=== PATIENT | male | born 1960 | race Caucasian/White ===

== ENCOUNTER → 2018-10-09 12:10 | Outpatient (CLI) | payer BC, SELFPAY ==
[2018-10-09 13:45] LABS: Absolute Lymphocyte Count 1.63 X10^3/ul (0.83-4.51); Absolute Neutrophil Count 4.4 X10^3/uL (2.0-7.7); Basophil# 0.02 X10^3/uL; Basophil% 0.3 % (0-1); Eosinophil# 0.12 X10^3/uL; Eosinophils% 1.7 % (0-5); Hematocrit 45.5 % (40-54); Hemoglobin 15.2 g/dl (13.0-16.5); Lymphocyte # 1.63 X10^3/ul (4.0); Lymphocyte % 22.6 % (19-41); Mean Corp Hgb Conc 33.4 g/gl (32-36); Mean Corpuscular Hgb 31.5 pg (27.0-32.0); Mean Corpuscular Volume 94.2 fL (80-94); Mean Platelet Vol. 9.4 fl (6.2-12.0); Monocyte# 1.02 X10^3/uL; Monocyte% 14.1 % (0-10); Neutrophil # 4.41 X10^3/uL (2.7-7.7); POSITIVE COUNT NO; POSITIVE DIFFERENTIAL NO; POSITIVE MORPHOLOGY NO; Platelet Count 210 K/mm3 (150-450); RBC Distribution Width CV 12.4 % (11.6-14.6); RBC Distribution Width SD 42.6 fl (35.1-43.9); Red Blood Count 4.83 M/mm3 (4.6-6.2); White Blood Count 7.2 K/mm3 (4.4-11.0)
[2018-10-09 13:56] LABS: ALB/GLOB Ratio 0.9 RATIO (0.9-2.4); AST(SGOT) 23 U/L (15-37); Alanine Aminotransfer ALT/SGPT 43 U/L (16-61); Albumin, Serum 3.7 g/dL (3.2-5.0); Alkaline Phosphatase 92 U/L (45-117); Anion Gap 8 (5-15); BUN 12 mg/dL (7-18); BUN/Creat Ratio 11.2 RATIO (10-20); CRP 5.51 mg/L (0.0-3.0); Calcium,Total 8.8 mg/dL (8.5-10.1); Chloride 104 mmol/L (98-107); Creatinine, Serum 1.07 mg/dL (0.70-1.30); EST Glomerular Filtration Rate 76 mL/min (>60); Est Glom Filt Rate - Afr Amer 92 mL/min (>60); Globulin 4.2 g/dL (2.2-4.2); Glucose 78 mg/dL (74-106); Potassium 4.2 mmol/L (3.5-5.1); Protein, Total 7.9 g/dL (6.4-8.2); Sodium Level 141 mmol/L (136-145)
[2018-10-09 14:03] LABS: Erythrocyte Sedimentation Rate 20 mm/hr (0-20)
== END ==
PROVIDERS: Family Provider Family Medicine; PCP Family Medicine; Visit Provider Family Medicine
DX: R23.0 Cyanosis (principal)
CPT/HCPCS: 36415; 80053; 85025; 85652; 86140

== ENCOUNTER → 2020-04-27 09:15 | Outpatient (CLI) | payer BC, SELFPAY ==
[2020-04-27 10:35] LABS: Anion Gap 5 (5-15); BUN 12 mg/dL (7-18); BUN/Creat Ratio 11.3 RATIO (10-20); Calcium,Total 8.7 mg/dL (8.5-10.1); Chloride 108 mmol/L (98-107); Cholesterol 163 mg/dL (200); Creatinine, Serum 1.06 mg/dL (0.70-1.30); EST Glomerular Filtration Rate 76 mL/min (>60); Est Glom Filt Rate - Afr Amer 92 mL/min (>60); Glucose 84 mg/dL (74-106); High Density Lipoprotein 38 mg/dL; Potassium 3.9 mmol/L (3.5-5.1); Sodium Level 141 mmol/L (136-145); Triglycerides 137 mg/dL; Very Low Density Lipoprotein 27 mg/dL (5-40)
== END ==
PROVIDERS: PCP Family Medicine; Referring Provider Family Medicine; Visit Provider Family Medicine
DX: Z00.00 Encounter for general adult medical examination without abnormal findings (principal)
CPT/HCPCS: 36415; 80048; 80061

== ENCOUNTER 2020-07-24 01:31 | Emergency (ER) | payer BC, SELFPAY ==
[2020-07-24 01:31] VITALS: BP 165/93; PULSE 85; RESP 22; TEMP 36.8; O2SAT 100; BMI 37.0
[2020-07-24 01:54] VITALS: O2SAT 98
--- NOTE | 2020-07-24 01:54 | EKG12_ITS ---
Test Reason : CHEST DASH Blood Pressure : / mmHG Vent. Rate : 082 BPM Atrial Rate : 082 BPM P-R Int : 160 ms QRS Dur : 094 ms QT Int : 396 ms P-R-T Axes : 049 -18 037 degrees QTc Int : 462 ms Normal sinus rhythm Poor R- wave Progression Confirmed by DOMINIQUE CARTAGENA, ALISIA ([id number]), publications editor CELIA PACHECO ([id number]) on 07/26/2020 9:40:45 AM Referred By: MARTHA Confirmed By:ALISIA FOX MD
--- NOTE | 2020-07-24 02:00 | RAD_ITS ---
STUDY: X-RAY CHEST REASON FOR EXAM: Male, 60 years old. CHEST PAIN TECHNIQUE: Single AP portable view of the chest. COMPARISON: None. FINDINGS: The lungs are clear and expanded. There is no demonstrated pleural abnormality. Normal size heart. Normal mediastinum and fabrice. Normal visualized pulmonary arteries. Normal visualized aortic arch and descending thoracic aorta. Normal visualized thoracic spine. Normal visualized ribs, clavicles, and shoulders. There is no demonstrated abnormality of the visualized soft tissue structures of the upper abdomen. RAD/Chest 1 View (Portable) IMPRESSION: Normal x-ray examination of the chest. Electronically Signed: Henry Lopes MD at 2:37 EDT , Service support ,
--- NOTE | 2020-07-24 02:09 | ED.VISSUMM ---
- ER Visit Summary Date of Service: 07/24/20 Chief Complaint: Chest pain History of Present Illness: The patient is a [address] Phoenix Batista. He reports that at 4:00 this morning he was awakened by chest pain last approximately 1 hour. He states that he got out of bed to go to the restroom and had a syncopal episode. He described this as a tightness. States that it resolved. He had 1-2 episodes during the day that were not related to exertion. At midnight while he was at rest he had the onset of a substernal tightness again. There is no radiation of the pain. 8/10 at worst and 6 out of 10 currently. Is worsened by nothing including exertion or breathing. It is relieved by T and aspirin. He denies any associated nausea, vomiting, or shortness of breath. Does report that he was been diaphoretic with this. Patient denies any chest pain or change in dyspnea exertion in the past month. In fact, he reports when he was working in the yard exerting himself is when he has felt best in the past week. Physical Examination: Vitals: Stable. Afebrile. General: Well-nourished and well-developed. Head: Normocephalic atraumatic. Neck: Supple, no lymphadenopathy. No JVD. Nontender. Cardiovascular: Regular rate and rhythm. No murmurs. Respiratory: No respiratory distress. Clear to auscultation bilaterally. Abdominal: Soft, nontender, nondistended, normal bowel sounds. No guarding, rebound, or peritoneal signs. Back: Nontender. Extremities: Nontender, no edema. Skin: Normal color, no rash. Neurologic: Alert and oriented ?3. Cranial nerves II through XII are intact. Normal strength and sensation. Psych: Normal affect. Test Results: EKG is sinus at [address] changes. There is no old EKG for comparison. Repeat EKG was unchanged. CBC shows monocytes of 12. Chem-7 is normal. Troponin is negative. Repeat troponin is negative. Emergency Department Course and Treatment: Patient had an IV placed. He was given aspirin and a GI cocktail p.o. He had negative orthostatic vital signs. Treatment Plan: Patient will be discharged with instructions to follow-up his primary care physician as soon as possible. Return to the emergency department for any worsening symptoms. Disposition: To home in [facility] and stable condition. Impression: 1. Atypical chest pain. 2. LONNIE score of 0. This note was generated with [employer] dictation software. It may contain incorrect words, spelling, and punctuation that were not noted in review of the chart prior to signing ED Disposition - Plan for ED Patient: Instructions: ED Chest Pain Atypical Unkn Cause Referrals: Phoenix Rose MD [Primary Care Provider] - As soon as possible
[2020-07-24 02:11] VITALS: BP 126/90; BP 140/90; BP 143/90; PULSE 68; PULSE 79
[2020-07-24 02:11] LABS: Absolute Lymphocyte Count 2.56 X10^3/uL (0.83-4.51); Absolute Neutrophil Count 4.4 X10^3/uL (2.0-7.7); Basophil# 0.04 X10^3/uL; Basophil% 0.5 % (0-1); Eosinophil# 0.12 X10^3/uL; Eosinophils% 1.5 % (0-5); Hematocrit 44.4 % (40-54); Hemoglobin 14.9 g/dL (13.0-16.5); Lymphocyte # 2.56 X10^3/ul (4.0); Lymphocyte % 31.5 % (19-41); Mean Corp Hgb Conc 33.6 g/dL (32-36); Mean Corpuscular Hgb 31.2 pg (27.0-32.0); Mean Corpuscular Volume 93.1 fL (80-94); Mean Platelet Vol. 9.2 fl (6.2-12.0); Monocyte# 0.96 X10^3/uL; Monocyte% 11.8 % (0-10); NRBC Flagged by Analyzer 0 % (0-5); Neutrophil # 4.42 X10^3/uL (2.7-7.7); Neutrophil % 54.5 % (47-70); Platelet Count 259 K/mm3 (150-450); RBC Distribution Width CV 12.5 % (11.6-14.6); RBC Distribution Width SD 43.1 fl (35.1-43.9); Red Blood Count 4.77 M/mm3 (4.6-6.2); White Blood Count 8.1 K/mm3 (4.4-11.0)
[2020-07-24 02:22] LABS: Anion Gap 6 (5-15); BUN 14 mg/dL (7-18); BUN/Creat Ratio 12.6 RATIO (10-20); Calcium,Total 8.9 mg/dL (8.5-10.1); Chloride 106 mmol/L (98-107); Creatinine, Serum 1.11 mg/dL (0.70-1.30); EST Glomerular Filtration Rate 72 mL/min (>60); Est Glom Filt Rate - Afr Amer 87 mL/min (>60); Estimated Creatinine Clearance 70.18 ml/min; Glucose 102 mg/dL (74-106); Potassium 3.6 mmol/L (3.5-5.1); Sodium Level 139 mmol/L (136-145)
[2020-07-24] MEDS: Aspirin 81 MG TAB.CHEW 324 MG PO (02:22)
[2020-07-24] MEDS: Mag Hydrox/Al Hydrox/Simeth 30 ML UDC PO (02:25)
[2020-07-24] MEDS: 0.9% Normal Saline 1,000 ML 150 ML IV (02:25)
[2020-07-24 02:26] VITALS: BP 155/88; PULSE 72; RESP 18; O2SAT 98
--- NOTE | 2020-07-24 02:30 | EKG12_ITS ---
Test Reason : REPEAT Blood Pressure : / mmHG Vent. Rate : 062 BPM Atrial Rate : 062 BPM P-R Int : 168 ms QRS Dur : 094 ms QT Int : 430 ms P-R-T Axes : 048 -18 029 degrees QTc Int : 436 ms Normal sinus rhythm Normal ECG Confirmed by DOMINIQUE CARTAGENA, ALISIA ([id number]), scientific editor CELIA PACHECO ([id number]) on 07/26/2020 9:40:19 AM Referred By: DANIELA Confirmed By:ALISIA FOX MD
[2020-07-24 03:56] VITALS: BP 138/65; PULSE 59; RESP 16; O2SAT 95
[2020-07-24 05:25] VITALS: BP 135/98; PULSE 54; RESP 20; O2SAT 97
== END 2020-07-24 05:34 | disposition home or self-care (01) ==
PROVIDERS: Emergency Provider Emergency Medicine; PCP Family Medicine
DX: R07.89 Other chest pain (principal); R61 Generalized hyperhidrosis
CPT/HCPCS: 71045; 80048; 84484; 85025; 93005; 99285; J7030; A4216

== ENCOUNTER → 2021-01-04 07:36 | Outpatient (CLI) | payer BC, SELFPAY ==
[2021-01-04 10:32] LABS: Anion Gap 4 (5-15); BUN 13 mg/dL (7-18); BUN/Creat Ratio 11.3 RATIO (10-20); Calcium,Total 9.1 mg/dL (8.5-10.1); Chloride 106 mmol/L (98-107); Creatinine, Serum 1.15 mg/dL (0.70-1.30); EST Glomerular Filtration Rate 69 mL/min (>60); Est Glom Filt Rate - Afr Amer 84 mL/min (>60); Glucose 88 mg/dL (74-106); Potassium 4.1 mmol/L (3.5-5.1); Sodium Level 139 mmol/L (136-145)
[2021-01-04 10:42] LABS: Hemoglobin A1c 5.7 % (3.8-5.6)
[2021-01-04 10:47] LABS: Insulin 26.8 mU/L (2.6-37.6)
== END ==
PROVIDERS: PCP Family Medicine; Referring Provider Dermatology; Visit Provider Dermatology
DX: L83 Acanthosis nigricans (principal); D22.5 Melanocytic nevi of trunk; L82.1 Other seborrheic keratosis; Z71.89 Other specified counseling; D23.5 Other benign neoplasm of skin of trunk; L57.8 Other skin changes due to chronic exposure to nonionizing radiation
CPT/HCPCS: 36415; 80048; 83036; 83525

== ENCOUNTER → 2021-05-04 08:32 | Outpatient (CLI) | payer BC, SELFPAY ==
--- NOTE | 2021-05-04 09:10 | RAD_ITS ---
STUDY: X-RAY - ABDOMEN/PELVIS REASON FOR EXAM: Male, 61 years old. R FLANK PAIN TECHNIQUE: Right flank pain. COMPARISON: None. FINDINGS: Normal visualized lung bases. There is an abundance of fecal material throughout the colon. There is no demonstrated free abdominal air. The visualized liver, spleen and kidneys are grossly normal in size and morphology. Normal soft tissue structures. Normal visualized osseous structures. RAD/Abd Inc Decub and/or Erect IMPRESSION: Large amount of fecal material is seen in the colon. Electronically Signed: Gregg Foy MD at 12:38 EDT , Service support ,
[2021-05-04 09:24] LABS: Anion Gap 4 (5-15); BUN 11 mg/dL (7-18); BUN/Creat Ratio 10.2 RATIO (10-20); Calcium,Total 8.6 mg/dL (8.5-10.1); Chloride 106 mmol/L (98-107); Cholesterol 156 mg/dL (200); Creatinine, Serum 1.08 mg/dL (0.70-1.30); EST Glomerular Filtration Rate 74 mL/min (>60); Est Glom Filt Rate - Afr Amer 90 mL/min (>60); Glucose 91 mg/dL (74-106); High Density Lipoprotein 42 mg/dL; Potassium 4.1 mmol/L (3.5-5.1); Sodium Level 141 mmol/L (136-145); Triglycerides 85 mg/dL; Very Low Density Lipoprotein 17 mg/dL (5-40)
[2021-05-04 09:26] LABS: Vitamin D,25 Hydroxy 24.6 ng/mL
== END ==
PROVIDERS: PCP Family Medicine; Referring Provider Family Medicine; Visit Provider Family Medicine
DX: Z00.00 Encounter for general adult medical examination without abnormal findings (principal); R10.9 Unspecified abdominal pain
CPT/HCPCS: 36415; 74019; 80048; 80061; 82306

== ENCOUNTER → 2021-10-08 16:48 | Outpatient (CLI) | payer BC, SELFPAY | PROVIDERS: PCP Family Medicine; Visit Provider Family Medicine | DX: Z20.822 Contact with and (suspected) exposure to COVID-19 (principal) | CPT/HCPCS: 87635; U0005; U0003 ==

== ENCOUNTER → 2022-05-03 | Outpatient (CLI) | payer BC, SELFPAY ==
[2022-05-03 10:39] LABS: Anion Gap 3 (5-15); BUN 15 mg/dL (7-18); BUN/Creat Ratio 13.4 RATIO (10-20); Calcium,Total 9.1 mg/dL (8.5-10.1); Chloride 108 mmol/L (98-107); Cholesterol 153 mg/dL (200); Creatinine, Serum 1.12 mg/dL (0.70-1.30); EST Glomerular Filtration Rate 71 mL/min (>60); Est Glom Filt Rate - Afr Amer 86 mL/min (>60); Glucose 91 mg/dL (74-106); High Density Lipoprotein 41 mg/dL; PSA,Total - Annual Screen 1.04 ng/mL (0.00-4.00); Potassium 4.6 mmol/L (3.5-5.1); Sodium Level 140 mmol/L (136-145); Triglycerides 120 mg/dL; Very Low Density Lipoprotein 24 mg/dL (5-40)
== END | disposition home or self-care (01) ==
LOC: MFPLAB 09:14
PROVIDERS: PCP Family Medicine; Referring Provider Family Medicine; Visit Provider Family Medicine
DX: Z00.00 Encounter for general adult medical examination without abnormal findings (principal); Z12.5 Encounter for screening for malignant neoplasm of prostate
CPT/HCPCS: 36415; 80048; 80061; 84153; G0103

== ENCOUNTER → 2023-05-09 | Outpatient (CLI) | payer BC, SELFPAY ==
[2023-05-09 10:46] LABS: Anion Gap 6 (5-15); BUN 14 mg/dL (7-18); Calcium,Total 8.8 mg/dL (8.5-10.1); Chloride 106 mmol/L (98-107); Cholesterol 145 mg/dL (200); Creatinine, Serum 1.08 mg/dL (0.70-1.30); EST Glomerular Filtration Rate 74 mL/min (>60); Est Glom Filt Rate - Afr Amer 89 mL/min (>60); Glucose 97 mg/dL (74-106); High Density Lipoprotein 40 mg/dL; PSA,Total - Annual Screen 0.95 ng/mL (0.00-4.00); Potassium 4.2 mmol/L (3.5-5.1); Sodium Level 139 mmol/L (136-145); Triglycerides 82 mg/dL; Very Low Density Lipoprotein 16 mg/dL (5-40)
== END | disposition home or self-care (01) ==
LOC: MFPLAB 09:17
PROVIDERS: PCP Family Medicine; Visit Provider Family Medicine
DX: Z00.00 Encounter for general adult medical examination without abnormal findings (principal)
CPT/HCPCS: 36415; 80048; 80061; 84153; G0103

== ENCOUNTER → 2023-10-07 | Outpatient (CLI) | payer BC, SELFPAY ==
--- NOTE | 2023-10-07 11:50 | RAD_ITS ---
STUDY: X-RAY - RIGHT HAND, ATTENTION THUMB FINGER REASON FOR EXAM: Male, 63 years old. Right thumb pain, more and more the last couple months. TECHNIQUE: 3 views of the right thumb were obtained. COMPARISON: None. FINDINGS: Normal metacarpal head. Normal metacarpophalangeal joint. Normal proximal phalanx. Normal distal phalanx. Normal interphalangeal joint of the thumb. There is no demonstrated fracture. RAD/Finger(s) Min 2 Views IMPRESSION: Normal x-ray examination of the right thumb. Electronically Signed: Danial Clemons MD at 14:28 EST ,
== END | disposition home or self-care (01) ==
LOC: MTRAD 11:48
PROVIDERS: PCP Family Medicine; Referring Provider Family Medicine; Visit Provider Family Medicine
DX: M79.644 Pain in right finger(s) (principal)
CPT/HCPCS: 73140

== ENCOUNTER → 2024-04-28 | Outpatient (CLI) | payer BC, SELFPAY ==
[2024-04-28 17:44] LABS: Absolute Lymphocyte Count 2.04 X10^3/uL (0.83-4.51); Absolute Neutrophil Count 4.9 X10^3/uL (2.0-7.7); Basophil# 0.04 X10^3/uL; Basophil% 0.5 % (0-1); Eosinophil# 0.14 X10^3/uL; Eosinophils% 1.8 % (0-5); Hematocrit 44.7 % (40-54); Hemoglobin 14.9 g/dL (13.0-16.5); Lymphocyte # 2.04 X10^3/ul (0.83-4.51); Lymphocyte % 25.6 % (19-41); Mean Corp Hgb Conc 33.3 g/dL (32-36); Mean Corpuscular Hgb 31.1 pg (27.0-32.0); Mean Corpuscular Volume 93.3 fL (80-94); Mean Platelet Vol. 9.1 fl (6.2-12.0); Monocyte# 0.89 X10^3/uL; Monocyte% 11.2 % (0-10); NRBC Flagged by Analyzer 0 % (0-5); Neutrophil # 4.85 X10^3/uL (2.7-7.7); Neutrophil % 60.6 % (47-70); Platelet Count 244 K/mm3 (150-450); RBC Distribution Width CV 12.5 % (11.6-14.6); RBC Distribution Width SD 43.1 fl (35.1-43.9); Red Blood Count 4.79 M/mm3 (4.6-6.2)
[2024-04-28 18:21] LABS: Anion Gap 5 (5-15); BUN 14 mg/dL (7-18); BUN/Creat Ratio 10.5 RATIO (10-20); Calcium,Total 9.3 mg/dL (8.5-10.1); Chloride 104 mmol/L (98-107); Creatinine, Serum 1.33 mg/dL (0.70-1.30); EST Glomerular Filtration Rate 58 mL/min (>60); Est Glom Filt Rate - Afr Amer 70 mL/min (>60); Glucose 130 mg/dL (74-106); Potassium 3.9 mmol/L (3.5-5.1); Sodium Level 138 mmol/L (136-145)
== END | disposition home or self-care (01) ==
LOC: MFPLAB 16:12
PROVIDERS: PCP Family Medicine; Visit Provider Family Medicine
DX: R07.9 Chest pain, unspecified (principal)
CPT/HCPCS: 36415; 80048; 85025

== ENCOUNTER 2024-04-29 22:30 | Emergency (ER) | payer BC, SELFPAY ==
[2024-04-29 22:31] VITALS: BP 138/81; PULSE 73; RESP 18; TEMP 36.7; O2SAT 97; BMI 36.9
--- NOTE | 2024-04-29 22:48 | EKG12_ITS ---
Test Reason : CP Blood Pressure : / mmHG Vent. Rate : 070 BPM Atrial Rate : 070 BPM P-R Int : 168 ms QRS Dur : 100 ms QT Int : 410 ms P-R-T Axes : 052 -29 048 degrees QTc Int : 442 ms Normal sinus rhythm Normal ECG Confirmed by VICTORIANO BUSTILLO MD ([id number]), publications editor PRASANTH BEAL ([id number]) on 05/03/2024 11:34:07 AM Referred By: MADISON Confirmed By:VICTORIANO BUSTILLO MD
[2024-04-29] MEDS: Lidocaine 2% Viscous15 ML UDC 15 ML PO (23:08)
[2024-04-29] MEDS: Famotidine 200 MG/20 ML MDV 20 MG in 0.9% Normal Saline (Pres. free 8 ML 300 MG IV (23:08)
[2024-04-29] MEDS: Mag Hydrox/Al Hydrox/Simeth 30 ML UDC PO (23:08)
--- NOTE | 2024-04-29 23:10 | RAD_ITS ---
INDICATION: chest pain EXAMINATION/TECHNIQUE: X-RAY - XR Chest 2 Views COMPARISON: 07/24/2020 FINDINGS: LINES/DEVICES: None. LUNGS: No consolidation, edema or effusion. No pneumothorax. MEDIASTINUM AND CARDIOVASCULAR STRUCTURES: Cardiac silhouette not enlarged. Central airways and mediastinal contour are unremarkable. BONES AND SOFT TISSUES: No acute changes. RAD/Chest PA and Lateral IMPRESSION: No radiographic evidence of acute cardiopulmonary disease. Electronically Signed: Mason Ramírez MD at 23:49 EDT ,
[2024-04-29 23:11] LABS: Absolute Lymphocyte Count 2.53 X10^3/uL (0.83-4.51); Absolute Neutrophil Count 3.7 X10^3/uL (2.0-7.7); Basophil# 0.05 X10^3/uL; Basophil% 0.7 % (0-1); Eosinophil# 0.18 X10^3/uL; Eosinophils% 2.5 % (0-5); Hematocrit 43.8 % (40-54); Hemoglobin 14.9 g/dL (13.0-16.5); Lymphocyte # 2.53 X10^3/ul (0.83-4.51); Lymphocyte % 34.6 % (19-41); Mean Corpuscular Hgb 31.3 pg (27.0-32.0); Monocyte% 12.3 % (0-10); NRBC Flagged by Analyzer 0 % (0-5); Neutrophil # 3.65 X10^3/uL (2.7-7.7); Neutrophil % 49.8 % (47-70); Platelet Count 224 K/mm3 (150-450); RBC Distribution Width CV 12.3 % (11.6-14.6); RBC Distribution Width SD 41.7 fl (35.1-43.9); Red Blood Count 4.76 M/mm3 (4.6-6.2); White Blood Count 7.3 K/mm3 (4.4-11.0)
[2024-04-29 23:30] VITALS: BP 133/82; PULSE 61; RESP 16; O2SAT 96
[2024-04-29 23:31] VITALS: BP 133/82; PULSE 63; RESP 18; O2SAT 95
[2024-04-29 23:34] LABS: AST(SGOT) 27 U/L (15-37); Alanine Aminotransfer ALT/SGPT 60 U/L (16-61); Albumin, Serum 3.6 g/dL (3.2-5.0); Alkaline Phosphatase 91 U/L (45-117); Anion Gap 5 (5-15); BUN 16 mg/dL (7-18); BUN/Creat Ratio 14.7 RATIO (10-20); Bilirubin, Direct 0.16 mg/dL (0.00-0.30); Chloride 106 mmol/L (98-107); Creatinine, Serum 1.09 mg/dL (0.70-1.30); EST Glomerular Filtration Rate 73 mL/min (>60); Est Glom Filt Rate - Afr Amer 88 mL/min (>60); Estimated Creatinine Clearance 84.61 ml/min; Globulin 4.2 g/dL (2.2-4.2); Glucose 141 mg/dL (74-106); Lipase 44 U/L (13-75); Magnesium 2.1 mg/dL (1.6-2.6); Potassium 3.7 mmol/L (3.5-5.1); Protein, Total 7.8 g/dL (6.4-8.2); Sodium Level 137 mmol/L (136-145); Troponin-I HS 4 pg/mL (3.0-78.0)
[2024-04-29 23:45] VITALS: BP 130/82; PULSE 61; RESP 22; O2SAT 94
[2024-04-30] VITALS: BP 131/84; PULSE 55; RESP 17; O2SAT 95
[2024-04-30 00:15] VITALS: BP 133/84; PULSE 57; RESP 19; O2SAT 94
[2024-04-30 00:30] VITALS: BP 132/88; PULSE 56; RESP 17; O2SAT 93
[2024-04-30 00:45] VITALS: BP 117/74; PULSE 55; RESP 14; O2SAT 95
[2024-04-30 01:00] VITALS: BP 130/81; PULSE 55; RESP 18; O2SAT 94
[2024-04-30 01:25] LABS: Troponin-I HS 4 pg/mL (3.0-78.0)
[2024-04-30 01:29] VITALS: BP 130/81; PULSE 54; RESP 17; TEMP 36.4; O2SAT 95
--- NOTE | 2024-04-30 01:32 | EX.ED.DYSGE1 ---
HPI History of Present Illness Chief Complaint: Chest Pain Informant: patient and spouse/S.O. Narrative Narrative: Patient is a 64-year-old male with past medical history of GERD and anxiety. He states over the past week he has been having intermittent midline chest discomfort described as a burning sensation. He states he has been taking his medications as directed. He reports he saw his family doctor for this the other day and has an outpatient stress test scheduled for approximately 1 week from now. Patient states that his symptoms returned this evening and therefore he presents to the hospital for evaluation. He states the pain is burning and midsternal he denies any radiation of the pain he denies any nausea vomiting diaphoresis or shortness of breath. Patient also denies any recent travel surgery or history of DVT/PE. He does state his father had a heart attack in his late 60s which is near his age and he is concerned this could be cardiac in nature and therefore comes in for evaluation [facility] Medical History (Updated 04/30/24 @ 01:[address] Kayden Banegas, DO) Anxiety Acid reflux Depression Umbilical hernia Home Medications ?Medication ?Instructions ?Recorded ?Last Taken ?Type ibuprofen 600 mg tablet 600 mg PO Q8H PRN fever or pain 04/30/24 Unknown History paroxetine HCl 20 mg tablet 20 mg PO DAILY 04/30/24 Unknown History Allergy/AdvReac Type Severity Reaction Status Date / Time Penicillins (PCN) Allergy Hives Verified 04/29/24 22:33 Surgical History (Updated 04/29/24 @ 23:00 by Leilani Webb) History of cholecystectomy Social History Smoking Status: Former smoker [facility] ED Constitutional Constitutional ED: Denies chills or fever(s) ENT ENT ED: Denies sore throat Cardiovascular Cardiovascular: Reports chest pain; Denies palpitations or racing heartbeat Respiratory/Chest Respiratory/Chest: Denies cough or dyspnea Gastrointestinal Gastrointestinal: Denies abdominal pain, diarrhea, nausea or vomiting Genitourinary Genitourinary ED: Denies dysuria Musculoskeletal Musculoskeletal: Denies back pain or myalgias Integumentary Denies rash Neurologic Neurologic: Denies headache(s) Psychiatric Psychiatric: Reports anxiety Hematologic/Lymphatic Hematologic/Lymphatic: Denies easy bleeding or easy bruising EXAM Physical Exam Const Vital Signs: 04/29/24 22:31 04/29/24 23:01 04/29/24 23:30 Temperature 98.1 F Temperature Source Temporal Pulse Rate 73 61 Respiratory Rate 18 16 Respiratory Effort Normal Non-Labored Blood Pressure 138/81 H 133/82 H Blood Pressure Mean 100 97 Pulse Ox 97 96 Oxygen Delivery Method Room Air 04/29/24 23:31 04/29/24 23:45 04/30/24 00:00 Temperature Temperature Source Pulse Rate 63 61 55 L Respiratory Rate 18 22 H 17 Respiratory Effort Blood Pressure 133/82 H 130/82 H 131/84 H Blood Pressure Mean 99 96 100 Pulse Ox 95 94 95 Oxygen Delivery Method Room Air 04/30/24 00:15 04/30/24 00:30 04/30/24 00:45 Temperature Temperature Source Pulse Rate 57 L 56 L 55 L Respiratory Rate 19 H 17 14 Respiratory Effort Blood Pressure 133/84 H 132/88 H 117/74 Blood Pressure Mean 100 103 88 Pulse Ox 94 93 95 Oxygen Delivery Method 04/30/24 01:00 04/30/24 01:29 Temperature 97.6 F L Temperature Source Pulse Rate 55 L 54 L Respiratory Rate 18 17 Respiratory Effort Blood Pressure 130/81 H 130/81 H Blood Pressure Mean 97 97 Pulse Ox 94 95 Oxygen Delivery Method Positive well nourished and well developed General Appearance ED: well developed; Negative for pallor HEENT HEENT Narrative: Normocephalic atraumatic Eyes PERRL and EOMs intact bilaterally General Eye ED: Negative for pale conjunctiva or scleral icterus Neck supple Neck Narrative: No nuchal rigidity or meningeal signs Chest Wall palpation of chest normal Chest Narrative: No bony deformity or crepitance noted Resp normal respiratory effort and clear to auscultation bilaterally Cardio regular rate and regular rhythm Rate: other Other Details: Heart is regular rate and rhythm without murmurs rubs or gallop Radial and carotid pulses are equal and symmetric GI normal to inspection, nondistended, normoactive bowel sounds, non-tender, non-distended and no masses GI Narrative: No voluntary guarding or rigidity or pulsatile mass Auscultation: normoactive bowel sounds Palpation: soft Extremity normal to inspection Extremity Narrative: No asymmetric edema no pitting edema negative Homans' sign bilaterally Neuro oriented x3, CN's II-XII intact bilaterally and no sensory deficits noted Sensorium / Orientation: alert Motor Exam: strength 5/5 throughout Psych mental status grossly normal Skin no rashes or lesions noted, no wounds and skin turgor normal General Skin Exam: Negative for jaundice or pallor MDM MDM MDM Narrative Medical decision making narrative: Patient arrived to the ER with stable vitals and reported intermittent chest discomfort that is atypical in nature. Differential diagnosis is for GERD versus acute coronary syndrome versus pancreatitis versus lung pathology such as pneumonia or pneumothorax. Therefore basic labs were obtained as well as chest x-ray. Initial and delta troponin were normal at 4 with normal sinus rhythm EKG going against acute coronary syndrome. Chest x-ray revealed no acute lung pathology. Labs revealed no signs of acute kidney injury or electrolyte abnormality and patient's lipase is normal going against pancreatitis. Therefore at this time as overall workup is negative and vitals are stable and do not feel there is need for admission and patient is otherwise safe for discharge. History & Record Review Discussion w/independent historian: Patient and Significant other Lab Data Attestation: I reviewed the patient's lab results. Labs: Laboratory Results - last 24 hr 04/29/24 04/30/24 22:48 00:47 WBC 7.3 RBC 4.76 Hgb 14.9 Hct 43.8 MCV 92.0 MCH 31.3 MCHC 34.0 RDW Std Deviation 41.7 RDW Coeff of Nicole 12.3 Plt Count 224 MPV 9.0 Immature Gran % (Auto) 0.100 Neut % (Auto) 49.8 Lymph % (Auto) 34.6 Tensas % (Auto) 12.3 H Eos % (Auto) 2.5 Baso % (Auto) 0.7 Absolute Neuts (auto) 3.7 Absolute Lymphs (auto) 2.53 Nucleated RBC % 0 Sodium 137 Potassium 3.7 Chloride 106 Carbon Dioxide 26.0 Anion Gap 5 BUN 16 Creatinine 1.09 Estim Creat Clear Calc 84.61 Est GFR (MDRD) Af Amer 88 Est GFR (MDRD) Non-Af 73 BUN/Creatinine Ratio 14.7 Glucose 141 H Calcium 9.0 Magnesium 2.1 Total Bilirubin 0.40 Direct Bilirubin 0.16 AST 27 ALT 60 Alkaline Phosphatase 91 Troponin I High Sens 4 4 Total Protein 7.8 Albumin 3.6 Globulin 4.2 Lipase 44 Radiography Diagnostic Testing: Clinical Impression(s) from Imaging Studies Chest X-Ray 04/29/24 23:10 IMPRESSION: No radiographic evidence of acute cardiopulmonary disease. Electronically Signed: Mason Ramírez MD at 23:49 EDT , Chest x-ray as interpreted by the emergency medicine physician reveals no acute infiltrate pneumothorax pleural effusion or widening of the mediastinum Discharge Plan Triage Chief Complaint: Chest Pain ED Provider: Kayden Banegas Dx/Rx/DC Orders Clinical Impression: Nonspecific chest pain, GERD (gastroesophageal reflux disease), Anxiety Instructions: ED Chest Pain, Uncertain Cause Prescriptions: No Action ibuprofen 600 mg tablet 600 mg PO Q8H PRN (Reason: fever or pain) paroxetine HCl 20 mg tablet 20 mg PO DAILY Primary Care Provider: Phoenix Rose Referrals: Phoenix Rose MD [Primary Care Provider] - Activity Restrictions/Additional Instructions: Your workup in the ER showed no signs of active cardiovascular damage or event. Please obtain your outpatient stress test for further evaluation of your symptoms and return to the ER should you have any further concerns Print Language: Croatian Disposition Disposition: Home, Self Care Discharge Date/Time: 04/30/24 01:38
== END 2024-04-30 01:38 | disposition home or self-care (01) ==
PROVIDERS: Emergency Provider Emergency Medicine; PCP Family Medicine; Visit Provider Emergency Medicine
DX: R07.9 Chest pain, unspecified (principal); F41.9 Anxiety disorder, unspecified; Z87.891 Personal history of nicotine dependence; K21.9 Gastro-esophageal reflux disease without esophagitis
CPT/HCPCS: 71046; 80048; 80076; 83690; 83735; 84484; 85025; 93005; 99284; A4216; J3490

== ENCOUNTER → 2024-05-05 | Outpatient (CLI) | payer BC, SELFPAY ==
--- NOTE | 2024-05-05 16:09 | STRESSREP ---
Stress Test Report Exercise stress test. 64-year-old man with a history of chest pain Stress protocol: Resting EKG demonstrates normal sinus rhythm with a rate of 61 bpm resting blood pressure is 130/88 mmHg. The patient exercised according to the regular Prince protocol for a total duration of 8 minutes attaining a maximum heart rate of 146 bpm which was 92% of maximum predicted heart rate; the maximum workload was 10.4 metabolic equivalents. At rest there were no ST or T wave changes noted to suggest ischemia and at peak exercise upsloping ST changes only were noted which did not meet the criteria for ischemia. No clinical angina was noted the test was terminated due to the target heart rate being achieved/fatigue. The peak blood pressure was 200/84 mmHg. Rate-pressure product was 29,200. Conclusion: Stress test with no EKG criteria for ischemia at a high workload. Good functional aerobic capacity.
== END | disposition home or self-care (01) ==
LOC: CVS 12:23
PROVIDERS: PCP Family Medicine; Referring Provider Family Medicine; Visit Provider Family Medicine
DX: R07.9 Chest pain, unspecified (principal)
CPT/HCPCS: 93017

== ENCOUNTER → 2024-11-09 | Outpatient (CLI) | payer BC, SELFPAY ==
[2024-11-09 09:02] LABS: Anion Gap 1 (5-15); BUN 13 mg/dL (7-18); Chloride 108 mmol/L (98-107); Cholesterol 149 mg/dL (200); Creatinine, Serum 1.18 mg/dL (0.70-1.30); EST Glomerular Filtration Rate 66 mL/min (>60); Est Glom Filt Rate - Afr Amer 80 mL/min (>60); Glucose 97 mg/dL (74-106); High Density Lipoprotein 43 mg/dL; PSA,Total - Annual Screen 0.97 ng/mL (0.00-4.00); Potassium 4.5 mmol/L (3.5-5.1); Sodium Level 141 mmol/L (136-145); Triglycerides 73 mg/dL; Very Low Density Lipoprotein 15 mg/dL (5-40)
== END | disposition home or self-care (01) ==
LOC: LAB 08:20
PROVIDERS: PCP Family Medicine; Referring Provider Family Medicine; Visit Provider Family Medicine
DX: Z00.00 Encounter for general adult medical examination without abnormal findings (principal); Z12.5 Encounter for screening for malignant neoplasm of prostate
CPT/HCPCS: 36415; 80048; 80061; 84153; G0103

== ENCOUNTER → 2024-11-24 | Outpatient (CLI) | payer BC, SELFPAY ==
--- NOTE | 2024-11-24 09:30 | NEURO ---
NCS and/or EMG Patient Report Ordering Doctor: Phoenix Rose DATE OF SERVICE: 11/24/24 Mason presents for electrodiagnostic testing of the lower limbs. He reports intermittent numbness and tingling in the feet. Electrodiagnostic findings: Peroneal motor nerve demonstrates normal distal latency, amplitude and conduction velocity bilaterally. Normal tibial motor response bilaterally. Normal peroneal and tibial F?waves. Borderline prolonged H?reflex bilaterally. Sensory responses are within normal limits. Needle EMG testing was performed in the lower limbs. All muscles tested showed no evidence of denervation with normal motor unit action potentials. Electrodiagnostic impression: This is a normal electrodiagnostic study of the lower limbs. There is no electrodiagnostic evidence for peripheral neuropathy or lumbosacral radiculopathy. Multi Select Codes Neurology Neurology Interp Codes: 48021-28 Musc test done w/n test comp (interp) (2) and 53694-20 Nrv cndj test 11-12 studies (interp)
== END | disposition home or self-care (01) ==
LOC: PSN 06:54
PROVIDERS: PCP Family Medicine; Referring Provider Family Medicine; Visit Provider Family Medicine
DX: R20.0 Anesthesia of skin (principal); R20.2 Paresthesia of skin
CPT/HCPCS: 95886; 95913

== ENCOUNTER → 2024-12-16 | Outpatient (CLI) | payer BC, SELFPAY ==
[2024-12-16 18:31] LABS: Uric Acid 5.6 mg/dL (3.5-7.2)
== END | disposition home or self-care (01) ==
LOC: MTLAB 16:27
PROVIDERS: PCP Family Medicine; Referring Provider Family Medicine; Visit Provider Family Medicine
DX: M79.671 Pain in right foot (principal)
CPT/HCPCS: 36415; 84550

== ENCOUNTER → 2024-12-23 | Outpatient (CLI) | payer BC, SELFPAY ==
--- NOTE | 2024-12-23 16:56 | RAD_ITS ---
PROCEDURE: FOOT MIN 3 VIEWS REASON FOR EXAM: Pain TECHNIQUE: 3 views of the right foot. COMPARISON: None. FINDINGS: No visible fracture. No suspicious bone lesion. Normal alignment. Soft tissues are unremarkable. RAD/Foot min 3 Views IMPRESSION: NO ACUTE FRACTURE OR DISLOCATION. [facility]
== END | disposition home or self-care (01) ==
LOC: MTRAD 16:55
PROVIDERS: PCP Family Medicine; Referring Provider Family Medicine; Visit Provider Family Medicine
DX: M79.671 Pain in right foot (principal)
CPT/HCPCS: 73630

== ENCOUNTER → 2025-05-04 | Outpatient (CLI) | payer BC, SELFPAY ==
--- NOTE | 2025-05-04 13:13 | NEURO ---
NCS and/or EMG Patient Report Ordering Doctor: Phoenix Rose DATE OF SERVICE: 05/04/25 Mason presents for electrodiagnostic testing of the left upper limb. He reports pain and numbness in the left shoulder radiating to the hand. Electrodiagnostic findings: Left median motor nerve demonstrates normal distal latency and amplitude measured at the wrist. A response at the elbow could not be obtained, though this was likely due to technical error as the patient had difficulty maintaining a still position. Left ulnar motor response was within normal limits, including conduction across the elbow. Normal left median and left ulnar F?waves. Sensory responses are within normal limits. Needle EMG testing was performed in the left upper limb. All muscles tested showed no evidence of denervation with normal motor unit action potentials. Electrodiagnostic impression: This is a normal electrodiagnostic study of the left upper limb. There is no electrodiagnostic evidence for peripheral neuropathy including carpal tunnel syndrome. There is no electrodiagnostic evidence of a cervical radiculopathy or brachial plexopathy Multi Select Codes Neurology Neurology Interp Codes: 51309-56 Musc test done w/n test comp (interp) and 56589-77 Nrv cndj test 7-8 studies (interp)
== END | disposition home or self-care (01) ==
LOC: PSN 12:24
PROVIDERS: PCP Family Medicine; Referring Provider Family Medicine; Visit Provider Family Medicine
DX: R20.0 Anesthesia of skin (principal); R20.2 Paresthesia of skin
CPT/HCPCS: 95886; 95910

== ENCOUNTER → 2025-06-24 | Outpatient (CLI) | payer BC, SELFPAY ==
[2025-06-24 11:30] LABS: Anion Gap 11 (5-15); BUN 12 mg/dL (4-19); BUN/Creat Ratio 11.4 RATIO (10-20); Calcium,Total 9.6 mg/dL (7.6-11.0); Carbon Dioxide 26.4 mmol/L (21.0-32.0); Chloride 103 mmol/L (98-108); Glucose 106 mg/dL (70-99); PSA,Total - Annual Screen 1.05 ng/mL (0.02-4.00); Potassium 4.4 mmol/L (3.3-5.1)
[2025-06-24 12:06] LABS: Cholesterol 154 mg/dL (<=200); Low Density Lipoprotein Calc. 92 mg/dL; Triglycerides 79 mg/dL; Very Low Density Lipoprotein 16 mg/dL (5-40); cholesterol:hdl ratio screen 3.37
== END | disposition home or self-care (01) ==
LOC: MFPLAB 08:54
PROVIDERS: PCP Family Medicine; Referring Provider Family Medicine; Visit Provider Family Medicine
DX: Z00.00 Encounter for general adult medical examination without abnormal findings (principal)
CPT/HCPCS: 36415; 80048; 80061; 84153; G0103

== ENCOUNTER → 2025-10-14 | Outpatient (CLI) | payer BC, SELFPAY ==
--- NOTE | 2025-10-14 11:50 | RAD_ITS ---
PROCEDURE: SHOULDER MIN 2 VIEWS 10/14/2025 REASON FOR EXAM: PAIN TECHNIQUE: Procedure Code: RADSH Modality: DX Procedure: SHOULDER MIN 2 VIEWS Laterality: Left COMPARISON: None FINDINGS: There is no evidence of fracture or dislocation. There is no significant arthritis of the glenohumeral joint. There is no significant arthritis of the acromioclavicular joint. The periarticular soft tissues are normal. RAD/Shoulder min 2 Views IMPRESSION: NO ACUTE FRACTURE OR DISLOCATION. Reading Location: [id number]
== END | disposition home or self-care (01) ==
LOC: MTRAD 11:48
PROVIDERS: PCP Family Medicine; Referring Provider Family Medicine; Visit Provider Family Medicine
DX: M25.512 Pain in left shoulder (principal)
CPT/HCPCS: 73030